=== PATIENT | female | born 1990 | race Caucasian/White ===

== ENCOUNTER → 2021-12-23 14:35 | Outpatient (BNVA) | payer OTHER, SELFPAY | PROVIDERS: Family Provider Physician Assistant Medical; PCP Nurse Practitioner Family; Visit Provider Obstetrics & Gynecology | DX: Z01.419 Encounter for gynecological examination (general) (routine) without abnormal findings (principal) | CPT/HCPCS: 87624 ==

== ENCOUNTER → 2022-06-02 09:47 | Outpatient (BNVA) | payer OTHER, SELFPAY | PROVIDERS: Family Provider Physician Assistant Medical; PCP Nurse Practitioner Family; Visit Provider Obstetrics & Gynecology | DX: Z32.00 Encounter for pregnancy test, result unknown (principal) | CPT/HCPCS: 81000; 81025 ==

== ENCOUNTER 2022-07-15 10:09 | Outpatient (CLI) | payer OTHER, SELFPAY ==
--- NOTE | 2022-07-15 10:00 | US_ITS ---
WS: [id number] EARLY OBSTETRICAL ULTRASOUND (<14 WEEKS). HISTORY: Dating US COMPARISON: None available. Single intrauterine gestational sac is identified. Cardiac activity at 176 BPM. [place]-rump length emily sures 4.1 cm which corresponds to a gestation of 11w0d. Normal-appearing yolk sac and amnion demonstr ated. No subchorionic hemorrhage. No free fluid. RIGHT ovary is not visualized. Normal LEFT ovary. US/US OB <= 14 weeks fetus [id number] IMPRESSION: 1. Single intrauterine gestation of 11 weeks 0 days with an EDC of 02/03/2023. 2. Normal cardiac activity.
== END 2022-07-15 10:10 | disposition home or self-care (01) ==
LOC: RAD 10:09
PROVIDERS: Family Provider Physician Assistant Medical; PCP Nurse Practitioner Family; Visit Provider Family Medicine
DX: Z34.80 Encounter for supervision of other normal pregnancy, unspecified trimester (principal)
CPT/HCPCS: 76801; 80048; 80307; 81000; 81025; 84144; 84443; 84702; 85025; 86592; 86762; 86803; 86850; 86900; 87086; 87340; 87491; 87591; 87624; 87806

== ENCOUNTER → 2022-08-18 16:24 | Outpatient (BNVA) | payer OTHER, SELFPAY | PROVIDERS: Family Provider Physician Assistant Medical; PCP Nurse Practitioner Family; Visit Provider Family Medicine | DX: I10 Essential (primary) hypertension (principal); R80.9 Proteinuria, unspecified; Z34.80 Encounter for supervision of other normal pregnancy, unspecified trimester | CPT/HCPCS: 81511; 82570; 84156 ==

== ENCOUNTER 2022-09-17 07:19 | Outpatient (CLI) | payer OTHER, SELFPAY ==
--- NOTE | 2022-09-17 07:15 | US_ITS ---
WS: [id number] OBSTETRICAL ULTRASOUND COMPLETE HISTORY: Anatomy US - about 9 weeks from now COMPARISON: 07/15/2022 Single intrauterine gestation in Cephalic presentation. Cervix is Closed and normal length. Cervical length is 4.7 cm. Normal amount of amniotic fluid surrounds the fetus. Placenta: Posterior, no previa or abruption. Placenta grade 0 Heart: 150 BPM. Four chambers are identified. RIGHT and LEFT outflow tracts are unremarkable. Anatomy: Limited evaluation of intracranial structures, in particular the cerebellum due to the head position. The remaining brain is negative. Negative spine. kidneys, stomach and urinary b ladder are unremarkable. Abdominal wall, three-vessel cord and cord insertion site are normal. 4 extremities are present. profile: Unremarkable. Gender: Male. measurements: BPD = 4.7 cm = 20w2d; HC = 18.0 cm = 20w3d; AC = 15.5 cm = 20w4d; FL = 3.3 cm = 20w3d; EFW: 360 g. Not available. Biometry is internally concordant. AGA by ultrasound: 20w3d KEITH by ultrasound: 02/01/2023 US/US OB >= 14 weeks fetus [id number] IMPRESSION: 1. Single intrauterine gestation of 20w3d with an KEITH of 02/01/2023. Appropria te growth since the first trimester ultrasound. 2. Limited visualization of the posterior fossa due to position of the h ead. Otherwise brain is negative. 3. The remaining anatomy is negative also.
== END 2022-09-17 07:20 | disposition home or self-care (01) ==
PROVIDERS: PCP Nurse Practitioner Family; Visit Provider Family Medicine
DX: Z34.82 Encounter for supervision of other normal pregnancy, second trimester (principal); Z3A.20 20 weeks gestation of pregnancy
CPT/HCPCS: 76805; 82570; 84156

== ENCOUNTER 2022-10-21 11:18 | Outpatient (CLI) | payer OTHER, SELFPAY ==
--- NOTE | 2022-10-21 11:15 | USCV_ITS ---
MarySoraya martins Age: 32 Gender: F : 1990 Exam Date: 10/21/2022 11:43 Ordering Phys: Carlos Mccurdy MD Technologist: [place] [facility] [place]ication: pain, lft le/hip PROCEDURES: Venous duplex imaging was performed in only the left lower extremity. In addition, the posterior tibial and peroneal trunk were evaluated. On the left side, the common femoral, superficial femoral, profunda femoral, popliteal, posterior tibial, greater saphenous veins, and the peroneal trunk were identified and interrogated in the standard fashion. FINDINGS: Normal 2-D Doppler and augmentation and compressibility throughout the lower extremity venous structures. Additional imaging through the proximal calf veins also reveals no thrombus. Limited evaluation of the greater saphenous vein is patent with no thrombus. Normal left inguinal lymph nodes. CONCLUSIONS No DVT left lower extremity. Normal left inguinal lymph nodes. Dr. Nuris Antony DO (Electronically Signed) Final Date: 21 October 2022 13:36 S
== END 2022-10-21 11:19 | disposition home or self-care (01) ==
PROVIDERS: PCP Nurse Practitioner Family; Visit Provider Family Medicine
DX: M79.89 Other specified soft tissue disorders (principal); M79.605 Pain in left leg; R80.9 Proteinuria, unspecified
CPT/HCPCS: 82570; 82950; 84156; 93971

== ENCOUNTER → 2022-11-18 12:37 | Outpatient (BNVA) | payer OTHER, SELFPAY | PROVIDERS: PCP Nurse Practitioner Family; Visit Provider Family Medicine | DX: R80.9 Proteinuria, unspecified (principal); Z34.80 Encounter for supervision of other normal pregnancy, unspecified trimester; Z3A.00 Weeks of gestation of pregnancy not specified | CPT/HCPCS: 82570; 84156 ==

== ENCOUNTER → 2022-12-02 15:40 | Outpatient (BNVA) | payer OTHER, SELFPAY | PROVIDERS: PCP Nurse Practitioner Family; Visit Provider Family Medicine | DX: Z34.80 Encounter for supervision of other normal pregnancy, unspecified trimester (principal); R80.9 Proteinuria, unspecified; I10 Essential (primary) hypertension | CPT/HCPCS: 82570; 84156 ==

== ENCOUNTER 2022-12-07 09:00 | Oncology outpatient (recurring) (ONCR) | payer OTHER, SELFPAY ==
[2022-12-07 09:46] VITALS: BP 123/74; PULSE 95; RESP 16; TEMP 37.2; O2SAT 98
[2022-12-07 11:34] VITALS: TEMP 36.8; O2SAT 98
[2022-12-07 11:46] VITALS: BP 122/75; PULSE 98; TEMP 36.8; O2SAT 98
== END 2022-12-19 23:59 | disposition home or self-care (01) ==
LOC: ONCMED 09:02
PROVIDERS: PCP Nurse Practitioner Family; Visit Provider Family Medicine
DX: O36.0190 Maternal care for anti-D [Rh] antibodies, unspecified trimester, not applicable or unspecified (principal)
CPT/HCPCS: 86850; 86900; 90384

== ENCOUNTER → 2022-12-14 10:02 | Outpatient (BNVA) | payer OTHER, SELFPAY | PROVIDERS: PCP Nurse Practitioner Family; Visit Provider Nurse Practitioner | DX: O12.10 Gestational proteinuria, unspecified trimester (principal) | CPT/HCPCS: 82575; 84105; 84156; 84300; 84540 ==

== ENCOUNTER 2022-12-28 08:30 | Day surgery (SDC) | payer OTHER, SELFPAY | END 2022-12-28 23:00 | disposition home or self-care (01) | LOC: OR 01-28 10:34 | PROVIDERS: PCP Nurse Practitioner Family; Visit Provider Family Medicine | DX: O12.10 Gestational proteinuria, unspecified trimester (principal); O16.9 Unspecified maternal hypertension, unspecified trimester | CPT/HCPCS: 82570; 84156 ==

== ENCOUNTER 2023-01-05 13:53 | Outpatient (CLI) | payer OTHER, SELFPAY ==
[2023-01-05] VITALS (7 sets, daily range): BP systolic 114–137; BP diastolic 59–83; PULSE 75–83; RESP 18; BMI 30.4
== END 2023-01-05 15:43 | disposition home or self-care (01) ==
LOC: OPOB 14:01 → OBGYN 15:34
PROVIDERS: PCP Nurse Practitioner Family; Visit Provider Family Medicine
DX: O26.899 Other specified pregnancy related conditions, unspecified trimester (principal); Z3A.00 Weeks of gestation of pregnancy not specified; Z67.91 Unspecified blood type, Rh negative
CPT/HCPCS: 59025; 99211

== ENCOUNTER 2023-01-06 09:31 | Outpatient (CLI) | payer OTHER, SELFPAY ==
--- NOTE | 2023-01-06 09:15 | US_ITS ---
WS: [id number] BIOPHYSICAL PROFILE AND LIMITED OB. HISTORY: Maternal proteinuria COMPARISON: 09/17/2022 and 07/15/2022 Presentation: Vertex. Cervix: 3.5 cm and closed. Placenta: Posterior, no previa or abruption. Grade: 1 HEART: FHR of 153BPM. measurements: BPD = 8.9 cm = 35w6d; 57% HC = 31.7 cm = 35w4d; 13% AC = 31.3 cm = 35w2d; 37% FL = 6.9 cm = 35w4d; 32% JESSICA: 14.1 cm EFW: 2673g; 52% AGA by ultrasound: 35w4d KEITH by ultrasound: 02/06/2023 Measurements are internally concordant. Appropriate growth since the first trimester ultrasound. Biophysical profile: Parameters are as follows: Breathin Movement: 2 Tone: 2 Fluid volume: 2 IMPRESSION: 1. Biophysical profile score: 8/8. 2. Single intrauterine gestation of 35w4d with an EDC of 02/06/2023. Appropriate growth since the fir st trimester ultrasound. 3. No growth asymmetry.
== END 2023-01-06 09:32 | disposition home or self-care (01) ==
LOC: RAD 09:31
PROVIDERS: PCP Nurse Practitioner Family; Visit Provider Family Medicine
DX: O12.13 Gestational proteinuria, third trimester (principal); Z3A.35 35 weeks gestation of pregnancy
CPT/HCPCS: 76816; 76819; 82570; 84156; 87081

== ENCOUNTER → 2023-01-12 10:23 | Outpatient (BNVA) | payer OTHER, SELFPAY | PROVIDERS: PCP Nurse Practitioner Family; Visit Provider Family Medicine | DX: O26.899 Other specified pregnancy related conditions, unspecified trimester; Z67.91 Unspecified blood type, Rh negative | CPT/HCPCS: 82570; 84156 ==

== ENCOUNTER → 2023-01-18 12:13 | Outpatient (BNVA) | payer OTHER, SELFPAY | PROVIDERS: PCP Nurse Practitioner Family; Visit Provider Family Medicine | DX: M79.89 Other specified soft tissue disorders (principal); R80.9 Proteinuria, unspecified; I10 Essential (primary) hypertension | CPT/HCPCS: 82570; 84156 ==

== ENCOUNTER 2023-01-20 06:19 | Inpatient (IN) | payer OTHER, SELFPAY ==
[2023-01-20] VITALS (61 sets, daily range): BP systolic 123–165; BP diastolic 65–102; PULSE 60–109; RESP 15–16; TEMP 36.4–36.8; O2SAT 98–100; BMI 33.8
[2023-01-20 06:58] LABS: Basophils % 0.3 %; Eosinophils # 0.1 10^3/uL (0.0-0.8); Eosinophils % 0.8 %; Hematocrit 37.1 % (36-47); Lymphocytes # 1.6 10^3/uL (0.8-4.8); Lymphocytes % 15.2 %; Mean Corpuscular HGB Conc 35.3 g/dL (30-55); Mean Corpuscular Hemoglobin 31.8 pg (27-33); Mean Platelet Volume 11.1 fL (7.4-10.4); Monocytes # 0.8 10^3/uL (0.2-0.9); Monocytes % 7.1 %; Neutrophils # 8.08 10^3/uL (1.8-7.7); Neutrophils % 75.6 %; Nucleated Red Blood Cells % 0 %; Platelet Count 204 10^3/cmm (157-399); Red Blood Count 4.12 10^6/uL (3.85-5.65); Red Cell Distribution Width 12.3 % (12.1-15.1)
[2023-01-20] MEDS: dextrose 5%-lactated ringers 1,000 ML 125 ML IV (07:46)
[2023-01-20] MEDS: oxytocin 30 UNIT/500 ML BAG IV (07:48)
[2023-01-20 08:11] LABS: Add Urine Microscopic? YES; Bilirubin Urine Neg (Negative); Blood Urine 2+ (Negative); Glucose Urine UA Norm (Normal); Ketones Urine Negative (Negative); Leukocyte Esterase Urine Negative (Negative); Nitrate Urine Negative (Negative); Protein Urine 2+ (Negative); RBC Urine 0-4 /hpf (0-2); Transitional Epi Cells Urine 0-4 /hpf; Urine Appearance Clear (CLEAR); Urine Color Yellow (Yellow); Urobilinogen Urine Norm (Negative); WBC Urine 0-4 /hpf (0-5); pH Urine 5 (5-7)
[2023-01-20 08:12] LABS: Add Urine Culture? No; Bacteria Urine TRACE /hpf
[2023-01-20 08:19] LABS: Urine Creatinine 86 mg/dL (28-217)
[2023-01-20 08:22] LABS: Urine Protein Random 120 mg/dL
[2023-01-20 08:28] LABS: Alanine Aminotransferase 10 U/L (0-33); Albumin Level 3.4 g/dL (3.5-5.2); Alkaline Phosphatase 133 U/L (35-105); Anion Gap 15.5 (5-19); Aspartate Amino Transferase 16 U/L (0-32); Blood Urea Nitrogen 12 mg/dL (6-20); Calcium 9.1 mg/dL (8.5-10.5); Carbon Dioxide 20 mmol/L (22-29); Chloride 104 mmol/L (98-107); Globulin 2.6 g/dL (1.3-4.6); Glomerular Filtration Rate 186.2 mL/min (90-130); Glucose 101 mg/dL (65-115); Osmolality Calculated 282 mOsm/kg (285-295); Potassium 3.5 mmol/L (3.5-5.1); Sodium 136 mmol/L (136-145); Total Bilirubin 0.2 mg/dL (0.15-1.2); Uric Acid 4.1 mg/dL (2.4-5.7)
--- NOTE | 2023-01-20 08:33 | P.HP_ITS ---
Providers/Chief Complaint Admitting Physician: Carlos Mccurdy MD Primary Care Provider: Alicja Mcknight NP Chief Complaint: induction History of Present Illness Soraya Hernandez is a 32 year old @ 38.0 weeks by 11 wk US inconsistent with LMP. Preg c/b cHTN, h/o PPROM at 35 weeks, h/o decreased kidney function (proteinuria), umbilical hernia, cystic fibrosis carrier, Rh negative The patient presents to labor and delivery secondary to a scheduled induction of labor because of increasing blood pressures and worsening proteinuria. Her blood pressures at home are getting into the 140s over 90s more consistently and she is getting intermittent headaches and nausea. The patient's urine protein creatinine ratio has been steadily increasing as well and the most recent level was 1.4 from a baseline of 0.67. Because of the patient's increase in blood pressures and worsening proteinuria, it was felt best to proceed with induction of labor at 38 weeks gestation to help mitigate risk of complications. The patient feels well today. She denies any headache today. She had some nausea overnight. She denies any chest pains, shortness of breath, diarrhea, constipation, fever, leakage of fluid, vaginal bleeding. 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 Knee pain Obesity [place]-Schlatter's disease of both lower extremities Proteinuria Surgical History No pertinent past surgical history Family History Sister Cystic fibrosis carrier Family/Other Ovarian cancer Maternal Great Aunt, age onset unknown Grandfather Diabetes paternal and maternal Clotting disorder paternal Mother Anesthesia complication Grandmother Anesthesia complication maternal Denies family history of Colon cancer Heart disease Hyperlipidemia Breast cancer Hypertension Uterine cancer Thyroid disease Stroke Social History Smoking and tobacco/nicotine status: never used tobacco/nicotine Alcohol intake: never Substance/Drug Use: never Female Reproductive History: : 3 Vitals/I&O/Wt Last Vital Signs Pulse 84 01/20/23 07:09 Resp 16 01/20/23 06:19 BP 136/87 01/20/23 07:09 O2 Del Method Room Air 01/20/23 06:21 01/19/23 01/20/23 01/20/23 22:59 06:59 14:59 Intake Total 81.867 / 81.867 Balance 81.867 / 81.867 Weight last 48 hrs Weight 185 lb Physical Exam Narrative: General: Alert and oriented x3 Eyes: Pupils equal round and reactive to light and accommodation Mouth: Mucous membranes moist, pharynx non-erythematous Cardiac: Regular rate and rhythm without murmurs Lungs: Clear to auscultation bilaterally without wheezes, crackles or rhonchi Abdomen: Soft, non-tender, fundus consistent with gestational age Extremities: +1 pitting edema in the bilateral lower extremities Data 01/20/23 06:44 01/20/23 07:30 A&P Assessment and plan (1) Supervision of normal intrauterine in multigravida: The patient is doing well overall at this time. heart tones are in the mid 140s with moderate ability to accelerations with category 1 tracing. The pa tient is having contractions every 10 to 15 minutes. She was 3 cm dilated upon admission. The patient will be started on IV Pitocin for induction of labor. She may have a labor and epidural when she is starting to contract regularly and make change. Her initial blood pressure was 136/87. We will watch for signs of increasing blood pressures and treat with the antihypertensive protocol if need ed. The patient does have underlying renal dysfunction with proteinuria. Although her urine protein creatinine ratio is elevated at baseline, it is increasing gradually and we will watch for signs of complications related to this. Currently I do not feel that the patient has preeclampsia. We will proceed with induction due to increasing risk of complications related to blood pressure as it has been increased at home. All questions were answered. The patient and her are in agreement with current plan of care. (2) Hypertension: (3) Proteinuria: (4) Rh negative state in antepartum period: Attestations Medical Necessity Statement*: The patient will be here for greater than 2 midnights due to routine intrapartum and management of labor and delivery. Coding Level of Care Code Acute Code for Chg Fwd Diagnoses Supervision of normal intrauterine in multigravida Z34.80 Hypertension I10 Proteinuria R80.9 Rh negative state in antepartum period O26.899; Z67.91
[2023-01-20] MEDS: lactated ringers 1,000 ML 999 ML IV (11:38)
[2023-01-20] MEDS: labetalol 5 mg/mL SDV 20mL 20 MG IVP (12:26)
[2023-01-20] MEDS: ROPivacaine syringe 100 MG/50 ML SYRINGE 10 MG EPIDURAL (12:47)
--- NOTE | 2023-01-20 12:57 | P.ANESASSM_ITS ---
Pre-Anesthetic Assessment Height/Weight: Height 1.57 m Weight 83.915 kg Temp Pulse Resp BP Pulse Ox O2 Del Method 97.7 F 78 16 140/98 99 Room Air 01/20/23 10:55 01/20/23 12:54 01/20/23 06:19 01/20/23 12:54 01/20/23 12:44 01/20/23 06:21 Epidural Familial anesthetic complications: None Was Beta Derek taken within 24 hours: N/A Was Clonidine taken within 24 hours: N/A Last intake: > Social No alcohol and No tobacco Exam alert, oriented x 3, clear to auscultation bilaterally and regular rate & rhythm CV/HEM Hypertension Anesthetic Plan ASA status: 2 Anesthesia: Regional (specify below) (epidural) Risk of > 500 ml blood loss (7ml/kg in children): Yes, adequate IV access and fluids planned Medications/Allergies Home Medications Medication Instructions Recorded Confirmed Last Taken Type prenat.vits,cammie,jel-uxyz-ijkav 1 tab PO DAILY 06/16/22 01/20/23 01/19/23 History Allergies Allergy/AdvReac Type Severity Reaction Status Date / Time No Known Allergies Allergy Verified 12/14/22 09:46 Current Medications Generic Name Dose Route Start Last Admin Trade Name Freq PRN Reason Stop Dose Admin Dextrose/Lactated Ringer's 1,000 mls @ 125 mls/hr 01/20/23 06:30 01/20/23 11:38 Dextrose 5%-Lactated Ringers IV 0 mls/hr .Q8H ROSELIA Infusion Oxytocin 30 unit in 500 mls @ 1 mls/hr 01/20/23 07:30 01/20/23 12:15 Pitocin IV 9 milliunit/min .Q24H ROSELIA 9 mls/hr Titration Protocol 1 MILLIUNIT/MIN Lactated Ringer's 1,000 mls @ 999 mls/hr 01/20/23 11:27 01/20/23 11:38 Lactated Ringers IV 999 mls/hr .Q1H1M PRN Administration See label comments Labetalol HCl 20 mg 01/20/23 12:14 01/20/23 12:26 Labetalol 5 Mg/Ml Sdv 20ml IVP 20 mg PRN PRN Administration HYPERTENSION Protocol [facility] Anesthesia Medical History Acute bacterial sinusitis 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 Knee pain Obesity [place]-Schlatter's disease of both lower extremities Proteinuria Surgical History No pertinent past surgical history Family History Sister Cystic fibrosis carrier Family/Other Ovarian cancer Maternal Great Aunt, age onset unknown Grandfather Diabetes paternal and maternal Clotting disorder paternal Mother Anesthesia complication Grandmother Anesthesia complication maternal Denies family history of Colon cancer Heart disease Hyperlipidemia Breast cancer Hypertension Uterine cancer Thyroid disease Stroke Social History Smoking and tobacco/nicotine status: never used tobacco/nicotine Alcohol intake: never Substance/Drug Use: never Female Reproductive History : 3 Data Anesthesia 01/20/23 06:44 01/20/23 07:30 Short CBC 01/20/23 Range/Units 06:44 WBC 10.70 (3.29-11.43) 10^3/uL Hgb 13.10 (11.27-16.99) g/dL Hct 37.1 (36-47) % MCV 90.0 (85-98) fl Plt Count 204 (157-399) 10^3/cmm Neut % (Auto) 75.6 % Neut # (Auto) 8.08 H (1.8-7.7) 10^3/uL BMP 01/20/23 07:30 Sodium 136 Potassium 3.5 Chloride 104 Carbon Dioxide 20 L BUN 12 Creatinine 0.4 L Glucose 101 Calcium 9.1 Liver Function 01/20/23 Range/Units 07:30 Total Bilirubin 0.2 (0.15-1.2) mg/dL AST 16 (0-32) U/L ALT 10 (0-33) U/L Alkaline Phosphatase 133 H (35-105) U/L Albumin 3.4 L (3.5-5.2) g/dL Urine 01/20/23 Range/Units 07:00 Urine Color Yellow (Yellow) Urine Appearance Clear (CLEAR) Urine pH 5 (5-7) Ur Specific [place] 1.020 (1.005-1.030) Urine Protein 2+ H (Negative) Urine Glucose (UA) Norm (Normal) Urine Ketones Negative (Negative) Urine Nitrate Negative (Negative) Urine Bilirubin Neg (Negative) Ur Leukocyte Esterase Negative (Negative) Urine RBC 0-4 H (0-2) /hpf Urine WBC 0-4 H (0-5) /hpf Blood Bank 01/20/23 06:44 Blood Type AB Negative Rho(D) Type Negative Antibody Screen Positive Cardiac Studies: No Data to Display
--- NOTE | 2023-01-20 12:58 | ANES.PROC ---
Anesthesia Procedures Procedure/Date: 01/20/23 Epidural: Time Out Performed: Yes Consents Signed: Procedure Consent Consent: requested by attending/covering physician, from patient, from other, risks and benefits reviewed and patient agrees to proceed Lumbar Level: L3-L4 Epidural position: sitting Epidural procedure: sterile prep of area, 1% lidocaine to numb the area, 18 g needle, negative for paresthesia passed, neg for paresthesia, test dose given, 1.5% xylocaine 1:200k epi (5), 0.2% Ropivacaine bolus ml (5), placed PCEA, no systemic response, sterile dressing applied, L.U.D. no apparent complications and 0.2% Ropiavacaine @ mls/hr (10) Additional Comments: KRISTEN at 6.5 cm, threaded to 12 cm, patient reported significant decrease in pain of contractions after bolus
--- NOTE | 2023-01-20 14:40 | PM.MISC ---
Miscellaneous Note Purpose of Documentation: Pain Note: Called back to Patient's bedside due to return of pain of contractions. Patient states she is feeling the contractions on her R and L sides now, but there is still some numbness of her R hip and her R foot feels less heavy. Upon inspection of the epidural insertion site it was discovered that epidural solution is leaking back out of the track the catheter and tuohy created and her dressings are becoming saturated. Offered to replace epidural since current one isn't working well with apparent leak, tip may potentially no longer be in the epidural space. Patient declined to have it replaced. I suggested turning off the pump, d/t possibility of epidural soln just being deposited needlessly in subcutaneous tissues, but it was felt by nursing staff and patient that the pump may be providing some element of pain control since she is reacting less adversely to each contraction than prior to epidural placement. All questions answered and anesthesia will remain available for any further assistance.
[2023-01-20] MEDS: lidocaine 2% INJ 20 mL INJECTION (15:43)
--- NOTE | 2023-01-20 16:00 | PM.DELIVERY ---
Delivery Note: Date of delivery: January 20, 2023 Pre-delivery diagnoses: 1. Intrauterine at 38.0 weeks gestation 2. Chronic hypertension 3. Proteinuria 4. Umbilical hernia 5. Cystic fibrosis carrier 6. Rh- Post-delivery diagnoses: 1. Intrauterine status post spontaneous vaginal delivery at 38.0 weeks gestation 2. Chronic hypertension 3. Proteinuria 4. Umbilical hernia 5. Cystic fibrosis carrier 6. Rh- 7. Delivery of healthy infant male weighing 6 pounds 15 ounces with Apgars of 9 and 10. Procedure: Spontaneous vaginal delivery Delivering Physician: Carlos Mccurdy MD Estimated blood loss (mL): 150 Findings: 1. Healthy infant male weighing 6 pounds 15 ounces with Apgars of 9 and 10 2. Intact placenta with central umbilical cord insertion site Pre-Delivery Course: Soraya Hernandez is a 32 year old G3 now [id number] status post continuous vaginal delivery @ 38.0 weeks by 11 wk US inconsistent with LMP. Preg was c/b cHTN, h/o PPROM at 35 weeks, h/o decreased kidney function (proteinuria), umbilical hernia, cystic fibrosis carrier, Rh negative. The patient presented to labor and delivery for induction of labor secondary to worsening hypertension and proteinuria. The patient was 3 cm dilated upon presentation. The patient was started on IV Pitocin and her contractions gradually increased. The patient had spontaneous rupture membranes at 12:09 PM on 01/20/2023. The patient made steady change and received a laboring epidural. Epidural initially helped well on 1 side but not the other. Eventually the epidural stopped working well and was found to be leaking. At that point, the patient was 8 cm dilated. We offered to have the epidural replaced versus breaking the forebag of water and moving forward. The patient requested to forego a new epidural and proceed with delivery. The patient gradually made change after the forebag was ruptured and was complete by 1503 on 01/20/2023. Delivery: The patient began pushing at 1507 on 01/20/2023. The patient pushed well and the delivered in the OA position at 1527 on 01/20/2023. The left shoulder was anterior shoulder and it delivered with downward pressure. The right hand was noted to be delivering along with the head. The rest of the infant delivered without complication. The 's mouth and nose were bulb suction by myself and the infant was crying immediately after delivery. The infant was placed on the patient's chest while the nurses were waiting to care for him. The cord was clamped by myself and cut by the infant's father after approximately one minute. The cord blood was obtained and then the cord was drained of blood. Traction was placed on the cord and the placenta delivered without complication at 1532 on 01/20/2023. The placenta was noted to be intact with a central umbilical cord insertion site. The cervix was inspected and no lacerations were noted. The vaginal wall was inspected and there was a small 2nd degree laceration of the perineum that did not extend to the rectum. 2% Lidocaine was placed for anesthesia and 3-0 vicryl was used to repair the laceration in a running fashion. The patient tolerated this well. A rectal exam was done and no sutures were noted in the rectal vault. Currently both the patient and are doing well. History History History 3 Term 1 1 Miscarriages/Ectopic 1 Living Children 2 Past Pregnancies Del. Date GA/Weeks Outcome Route Wt Inf Gender Labor Lgth Comp. Anesthesia Location 12/29/17 35 live - Vaginal 5 lb 7 oz Male 10 hours regional [facility] [place] - [facility] 01/20/23 38 live - full term Vaginal 6 lb 15 oz Male 8 hr regional [facility] [place] Delivery Date: 12/29/17 Last Updated by: Carlos Mccurdy MD PPROM at 35 weeks, [facility], no gHTN, NICU for 10 days - [place] Delivery Date: 01/20/23 Last Updated by: Carlos Mccurdy MD cHTN, worsening proteinuria, epidural did not work and leaked fluid out the back. A&P Assessment and plan (1) Spontaneous vaginal delivery: (2) Rh negative state in antepartum period: (3) Proteinuria: (4) Hypertension: Coding Level of Care Code Acute Code for Chg Fwd Diagnoses Spontaneous vaginal delivery O80 Rh negative state in antepartum period O26.899; Z67.91 Proteinuria R80.9 Hypertension I10
[2023-01-20] MEDS: HYDROcodone-acetaminophen 5-325 mg Tablet PO (17:26)
[2023-01-20] MEDS: docusate sodium 100 mg Capsule PO (18:42)
[2023-01-20] MEDS: ibuprofen 800 mg tablet PO (23:09)
[2023-01-21] MEDS: HYDROcodone-acetaminophen 5-325 mg Tablet PO (01:27)
[2023-01-21 01:39] VITALS: BP 147/76; PULSE 84; RESP 16; TEMP 36.9; O2SAT 98
[2023-01-21 03:59] LABS: Hematocrit 31.7 % (36-47); Mean Corpuscular HGB Conc 35.3 g/dL (30-55); Mean Corpuscular Hemoglobin 31.6 pg (27-33); Mean Corpuscular Volume 89.5 fl (85-98); Mean Platelet Volume 11.2 fL (7.4-10.4); Platelet Count 194 10^3/cmm (157-399); Red Blood Count 3.54 10^6/uL (3.85-5.65); Red Cell Distribution Width 12.2 % (12.1-15.1); White Blood Count 14.38 10^3/uL (3.29-11.43)
[2023-01-21 05:35] VITALS: BP 144/72; PULSE 90; RESP 15; TEMP 36.8; O2SAT 99
--- NOTE | 2023-01-21 08:00 | ANE.PACU2 ---
Inpatient post-anesthesia follow up: Airway intact: Yes Vital signs: Temperature 98.4 F Pulse Rate 75 Respiratory Rate 18 Blood Pressure 150/88 Pulse Oximetry 98 Oxygen Delivery Me thod Room Air Oxygen Flow Rate Fraction of Inspir ed Oxygen Hydration adequate: Yes Nausea and vomiting: No Pain level: 1 Mental status: Baseline
[2023-01-21] MEDS: docusate sodium 100 mg Capsule PO (09:22)
[2023-01-21] MEDS: prenatal vitamin Capsule 1 CAP PO (09:22)
[2023-01-21] MEDS: ibuprofen 800 mg tablet PO ×2 (09:22→15:55)
[2023-01-21 09:33] VITALS: BP 132/109; PULSE 83; RESP 16; TEMP 36.6; TEMP 36.7; O2SAT 99
[2023-01-21 15:55] VITALS: BP 130/83; PULSE 79; RESP 16; TEMP 37.2; O2SAT 98
--- NOTE | 2023-01-21 17:11 | P.DS_ITS ---
Discharge Providers Date of Admission: 01/20/23 06:19 Date of Discharge: January 21, 2023 Attending Provider at Admission: Carlos Mccurdy MD Attending Provider at Discharge: Carlos Mccurdy MD Primary Care Provider: Alicja Mcknight NP Diagnoses at Discharge Discharge Diagnosis (1) Spontaneous vaginal delivery: Status: Acute (2) Rh negative state in antepartum period: Status: Acute (3) Proteinuria: Status: Acute (4) Hypertension: Status: Acute Other Information Additional DC diagnoses/information: 1.? Intrauterine status post spontaneous vaginal delivery at 38.0 weeks gestation 2.? Chronic hypertension 3.? Proteinuria 4.? Umbilical hernia 5.? Cystic fibrosis carrier 6.? Rh- 7.? Delivery of healthy male weighing 6 pounds 15 ounces with Apgars of 9 and 10 Reason for Visit Reason for Visit: induction Brief History: Soraya Hernandez is a 32 year old G3 now P1112 status post continuous vaginal delivery @ 38.0 weeks by 11 wk US inconsistent with LMP. Preg was c/b cHTN, h/o PPROM at 35 weeks, h/o decreased kidney function (proteinuria), umbilical h ernia, cystic fibrosis carrier, Rh negative. The patient presented to labor and delivery for induction of labor secondary to worsening hypertension and proteinuria.? Hospital Course Hospital Course The patient was 3 cm dilated upon presentation.? The patient was started on IV Pitocin and her contractions gradually increased.? The patient had spontaneous rupture membranes at 12:09 PM on 01/20/2023.? The patient made steady change and received a laboring epidural.? Epidural initially helped well on 1 side but not the other.? Eventually the epidural stopped working well and was found to be leaking.? At that point, the patient was 8 cm dilated.? We offered to have the epidural replaced versus breaking the forebag of water and moving forward.? The patient requested to forego a new epidural and proceed with delivery.? The patient gradually made change after the forebag was ruptured and was complete by 1503 on 01/20/2023. The patient began pushing at 1507 on 01/20/2023.? The patient pushed well and the delivered in the OA position at 1527 on 01/20/2023.? The left shoulder was anterior shoulder and it delivered with downward pressure.? The right hand was noted to be delivering along with the head.? The rest of the infant delivered without complication.? The infant's mouth and nose were bulb suction by myself and the infant was crying immediately after delivery.? The was placed on the patient's chest while the nurses were waiting to care for him. The cord was clamped by myself and cut by the infant's father after approximately one minute. The cord blood was obtained and then the cord was drained of blood. Traction was placed on the cord and the placenta delivered without complication at 1532 on 01/20/2023. The placenta was noted to be intact with a central umbilical cord insertion site. The cervix was inspected and no lacerations were noted. The vaginal wall was inspected and there was a small 2nd degree laceration of the perineum that did not extend to the rectum. 2% Lidocaine was placed for anesthesia and 3-0 vicryl was used to repair the laceration in a running fashion. The patient tolerated this well. the patient has done well. Her bleeding is decreased well. She is ambulating, voiding, passing gas and tolerating food by mouth. Her blood pressures have been in the 130s to 140s in general. She is not having any symptoms of severe pressures. The patient is to watch her blood pressures at home and we will recheck her urine protein creatinine ratio at 6 weeks. The patient has labetalol at home to take if needed. Routine discharge instructions were discussed. All questions were answered. Physical Exam Narrative: General: Alert and oriented x3 Cardiac: Regular rate and rhythm without murmurs Lungs: Clear to auscultation bilaterally without wheezes, crackles or rhonchi Abdomen: Soft, mild tenderness over uterus. The uterus is firm and 2 cm below the umbilicus. Extremities: +1 pitting edema in the bilateral lower extremities Urinary Catheter Management: Vazquez: Cath Placed During This Visit: yes, but has since been removed by the nurse Reason for Continuing Indwelling Catheter: Decision to DC Catheter Urinary Catheter Date of Insertion: 01/20/23 Urinary Catheter Time of Insertion: 13:40 Date Urinary Catheter Removed: 01/20/23 Time Urinary Catheter Discontinued: 15:00 Discharge Data Studies Completed and Pending Laboratory Results WBC 14.38 10^3/uL (3.29-11.43) H 01/21/23 03:50 RBC 3.54 10^6/uL (3.85-5.65) L 01/21/23 03:50 Hgb 11.20 g/dL (11.27-16.99) L 01/21/23 03:50 Hct 31.7 % (36-47) L 01/21/23 03:50 MCV 89.5 fl (85-98) 01/21/23 03:50 MCH 31.6 pg (27-33) 01/21/23 03:50 MCHC 35.3 g/dL (30-55) 01/21/23 03:50 RDW 12.2 % (12.1-15.1) 01/21/23 03:50 Plt Count 194 10^3/cmm (157-399) 01/21/23 03:50 MPV 11.2 fL (7.4-10.4) H 01/21/23 03:50 Neut % (Auto) 75.6 % 01/20/23 06:44 Lymph % (Auto) 15.2 % 01/20/23 06:44 [place] % (Auto) 7.1 % 01/20/23 06:44 Eos % (Auto) 0.8 % 01/20/23 06:44 Baso % (Auto) 0.3 % 01/20/23 06:44 Neut # (Auto) 8.08 10^3/uL (1.8-7.7) H 01/20/23 06:44 Lymph # (Auto) 1.6 10^3/uL (0.8-4.8) 01/20/23 06:44 [place] # (Auto) 0.8 10^3/uL (0.2-0.9) 01/20/23 06:44 Eos # (Auto) 0.1 10^3/uL (0.0-0.8) 01/20/23 06:44 Baso # (Auto) 0.0 10^3/uL (0.0-0.1) 01/20/23 06:44 Nucleated RBC % (auto) 0 % 01/20/23 06:44 Nucleated RBCs # 0.0 /100WBC 01/20/23 06:44 Sodium 136 mmol/L (136-145) 01/20/23 07:30 Potassium 3.5 mmol/L (3.5-5.1) 01/20/23 07:30 Chloride 104 mmol/L (98-107) 01/20/23 07:30 Carbon Dioxide 20 mmol/L (22-29) L 01/20/23 07:30 Anion Gap 15.5 (5-19) 01/20/23 07:30 BUN 12 mg/dL (6-20) 01/20/23 07:30 Creatinine 0.4 mg/dL (0.5-0.9) L 01/20/23 07:30 GFR Calculation 186.2 mL/min (90-130) H 01/20/23 07:30 Glucose 101 mg/dL (65-115) 01/20/23 07:30 Calculated Osmolality 282 mOsm/kg (285-295) L 01/20/23 07:30 Uric Acid 4.1 mg/dL (2.4-5.7) 01/20/23 07:30 Calcium 9.1 mg/dL (8.5-10.5) 01/20/23 07:30 Total Bilirubin 0.2 mg/dL (0.15-1.2) 01/20/23 07:30 AST 16 U/L (0-32) 01/20/23 07:30 ALT 10 U/L (0-33) 01/20/23 07:30 Alkaline Phosphatase 133 U/L (35-105) H 01/20/23 07:30 Total Protein 6.0 g/dL (6.6-8.7) L 01/20/23 07:30 Albumin 3.4 g/dL (3.5-5.2) L 01/20/23 07:30 Globulin 2.6 g/dL (1.3-4.6) 01/20/23 07:30 Urine Color Yellow (Yellow) 01/20/23 07:00 Urine Appearance Clear (CLEAR) 01/20/23 07:00 Urine pH 5 (5-7) 01/20/23 07:00 Ur Specific [place] 1.020 (1.005-1.030) 01/20/23 07:00 Urine Protein 2+ (Negative) H 01/20/23 07:00 Urine Glucose (UA) Norm (Normal) 01/20/23 07:00 Urine Ketones Negative (Negative) 01/20/23 07:00 Urine Blood 2+ (Negative) H 01/20/23 07:00 Urine Nitrate Negative (Negative) 01/20/23 07:00 Urine Bilirubin Neg (Negative) 01/20/23 07:00 Urine Urobilinogen Norm mg/dL (Negative) 01/20/23 07:00 Ur Leukocyte Esterase Negative (Negative) 01/20/23 07:00 Urine RBC 0-4 /hpf (0-2) H 01/20/23 07:00 Urine WBC 0-4 /hpf (0-5) H 01/20/23 07:00 Ur Squamous Epith Cells 5-10 /hpf (0-5) H 01/20/23 07:00 Ur Transition Epith Cell 0-4 /hpf 01/20/23 07:00 Calcium Oxalate Crystal 10-15 /hpf H 01/20/23 07:00 Amorphous Sediment Not Reportable 01/20/23 07:00 Urine Bacteria Trace /hpf (NONE) 01/20/23 07:00 U Random Total Protein 120 mg/dL 01/20/23 07:00 Urine Creatinine 86 mg/dL (28-217) 01/20/23 07:00 Protein/Creatinin Ratio 1.40 mg/mg CR 01/20/23 07:00 Blood Type AB Negative 01/20/23 06:44 Rho(D) Type Negative 01/20/23 06:44 Antibody Screen Positive 01/20/23 06:44 Antibody Identification Anti-D 01/20/23 06:44 Vitals Last Vital Signs Temp 98.9 F 01/21/23 15:55 Pulse 79 01/21/23 15:55 Resp 16 01/21/23 15:55 BP 130/83 01/21/23 15:55 Pulse Ox 98 01/21/23 15:55 O2 Del Method Room Air 01/21/23 15:55 Discharge Plan Discharge Patient Disposition: Home Condition: Stable Prescriptions: New hydrocodone-acetaminophen 5-325 mg Tablet 1 tab PO Q6H PRN (Reason: Moderate To Severe Pain) Qty: 10 0RF ibuprofen 800 mg Tablet 800 mg PO TID Qty: 30 0RF ferrous sulfate 325 mg (65 mg iron) tablet 325 mg PO DAILY Qty: 14 0RF labetalol 100 mg tablet 100 mg PO BID PRN (Reason: See instructions) Qty: 60 0RF Rx Instructions: Take one tab PO BID if SBP>150 or DBP>100 Continued prenat.vits,cammie,[id number] Tablet 1 tab PO DAILY Discharge Orders: Discharge Order (Routine); Ordered 01/21/23 Ordered By: Carlos Mccurdy Patient Instructions: Depression (DC), Bleeding (DC), Preeclampsia and Eclampsia After Delivery (GEN), Vaginal Delivery (DC), Hemorrhage (DC), OB Discharge Report, OB Food/Drug Interaction Guide, Opioid Safety, OB Home Care, OB Proud Parent Packet Activity Restrictions/Additional Instructions: Nothing per vagina for 6 weeks. I would recommend showers instead of baths for the first 6 weeks. Discharge Attestations Time Spent in Discharge Care*: greater than 30 min Quality Metrics Clinical Quality Measures [ No reported AMI, CVA or VTE this stay] Coding Level of Care Code Acute Code for Chg Fwd Diagnoses Spontaneous vaginal delivery O80 Rh negative state in antepartum period O26.899; Z67.91 Proteinuria R80.9 Hypertension I10
[2023-01-21 18:15] VITALS: BP 150/88; PULSE 75; RESP 18; TEMP 36.9
== END 2023-01-21 18:20 | disposition home or self-care (01) | DRG 806 ==
LOC: OPOB 08:27 → OBGYN 08:27
PROVIDERS: Admitting Provider Family Medicine; PCP Nurse Practitioner Family; Visit Provider Family Medicine
DX: O16.4 Unspecified maternal hypertension, complicating childbirth (principal); O36.0930 Maternal care for other rhesus isoimmunization, third trimester, not applicable or unspecified; Z37.0 Single live birth; O99.834 Other infection carrier state complicating childbirth; O12.14 Gestational proteinuria, complicating childbirth; Z22.8 Carrier of other infectious diseases; O70.1 Second degree perineal laceration during delivery; Z3A.38 38 weeks gestation of pregnancy; K42.9 Umbilical hernia without obstruction or gangrene; Z67.91 Unspecified blood type, Rh negative
CPT/HCPCS: 36415; 51702; 59025; 59409; 80053; 80503; 81001; 82570; 84156; 84550; 85025; 85027; 86850; 86870; 86900; 96374; J2590; J2795; J3490; J7120; J7121

== ENCOUNTER 2023-02-17 14:23 | Outpatient (CLI) | payer OTHER, SELFPAY ==
--- NOTE | 2023-02-17 14:30 | CT_ITS ---
WS: [id number] CT ABDOMEN AND PELVIS NONCONTRAST HISTORY: periumbilical hernia TECHNIQUE: Imaging performed through the abdomen and pelvis. Coronal and sagittal reformats are submi tted. All CT scans at [facility] use at least one of these dose optimization techniques: auto mated exposure control; mA and/or kV adjustment per patient size (includes targeted exams where dose is matched to clinical indication); or iterative reconstruction. DLP: 429.13 mGy.cm COMPARISON: None available. Lower thorax: Lung bases are clear. Visualized heart is normal. No hiatal hernia. Liver: Normal size liver. No mass or bile duct dilatation. Gallbladder: Normal gallbladder. No pericholecystic fluid or cholelithiasis. No gallbladder wall thic kening. Pancreas: Normal size and attenuation. Normal pancreatic duct. No pancreatitis or mass. Spleen: Normal. Adrenal glands: Normal. No mass. Right kidney: Nonobstructing 5 mm calcification mid pelvis. Left kidney: Normal size kidney with no mass or hydronephrosis. Aorta: Normal abdominal aorta, no aneurysm or atherosclerosis. No free fluid, intraperitoneal air or significant lymphadenopathy. GI tract: Normal noncontrast imaging of the stomach, small bowel and colon. No obstruction or wall th ickening. Normal appendix. Abdominal wall: There is a very tiny defect at the level of the umbilicus containing fat. There is al so an area of increased density within the omental fat suggesting omental necrosis. No incarcerated h ernia. Pelvis: Osseous structures: Unremarkable. IMPRESSION: 1. Very small fat-containing umbilical hernia. There is also an area of fat necrosis just deep to th e umbilicus 2. Normal appendix. 3. Nonobstructing 5 mm calcification RIGHT renal pelvis.
== END 2023-02-17 14:24 | disposition home or self-care (01) ==
LOC: RAD 14:25
PROVIDERS: PCP Nurse Practitioner Family; Visit Provider Surgery
DX: K42.9 Umbilical hernia without obstruction or gangrene (principal); M79.89 Other specified soft tissue disorders; N28.89 Other specified disorders of kidney and ureter
CPT/HCPCS: 74176

== ENCOUNTER 2023-06-14 10:59 | Day surgery (SDC) | payer OTHER, SELFPAY ==
[2023-06-14] VITALS (15 sets, daily range): BP systolic 108–134; BP diastolic 61–87; PULSE 72–101; RESP 15–24; TEMP 36.5–37.1; O2SAT 92–100; BMI 27.4
--- NOTE | 2023-06-14 12:03 | P.HPUD_ITS ---
Surgery/Procedure H&P Update DATE OF PROCEDURE: June 14, 2023 DATE H&P PERFORMED: 05/25/23 H&P UPDATE INFORMATION: I have reviewed H&P completed within last 30 days, I have examined patient prior to procedure, No changes to prior documentation and H&P is in [facility] EMR on date indicated PLANNED PROCEDURE: Operation Date: 06/14/23 12:40 Proposed Procedures p 27675 lap possible open ventral hernia repair with mesh K43.9(Not Applicable) - Bobby Carrera MD
--- NOTE | 2023-06-14 12:16 | ANES.PREANE2 ---
Pre-Anesthetic Assessment Height/Weight: Height 1.57 m Temp Pulse Resp BP Pulse Ox O2 Del Method 97.7 F 89 16 126/86 98 Room Air 06/14/23 11:59 06/14/23 11:59 06/14/23 11:59 06/14/23 11:59 06/14/23 11:59 06/14/23 11:59 Operation Date: 06/14/23 12:40 Proposed Procedures p 67947 lap possible open ventral hernia repair with mesh K43.9(Not Applicable) - Bobby Carrera MD Familial anesthetic complications: None Was Beta Derek taken within 24 hours: N/A Was Clonidine taken within 24 hours: N/A Last intake: Intake Last Liquid Date 06/14/23 Last Liquid Time 06:30 Last Solid Date 06/14/23 Last Solid Time 06:30 Social No alcohol and No tobacco Exam alert, oriented x 3, clear to auscultation bilaterally and regular rate & rhythm Airway Mallampati: Class I Dentition: full Anesthetic Plan ASA status: 1 Anesthesia: General Risk of > 500 ml blood loss (7ml/kg in children): No Medications/Allergies Allergies Allergy/AdvReac Type Severity Reaction Status Date / Time No Known Allergies Allergy Verified 06/11/23 09:08 [facility] Anesthesia Medical History Proteinuria Acute bacterial sinusitis 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 Obesity Knee pain [place]-Schlatter's disease of both lower extremities Surgical History No pertinent past surgical history Family History Sister Cystic fibrosis carrier Family/Other Ovarian cancer Maternal Great Aunt, age onset unknown Grandfather Diabetes paternal and maternal Clotting disorder paternal Mother Anesthesia complication Grandmother Anesthesia complication maternal Denies family history of Colon cancer Heart disease Hyperlipidemia Breast cancer Hypertension Uterine cancer Thyroid disease Stroke Social History Smoking and tobacco/nicotine status: never used tobacco/nicotine Alcohol intake: never Substance/Drug Use: never Female Reproductive History Date of last menstrual period: 06/11/23 Data Anesthesia Cardiac Studies: No Data to Display
[2023-06-14] MEDS: sodium chloride 0.9% 1,000 ML 30 ML IV (12:41)
[2023-06-14 12:49] LABS: OR HCG Qualitative Urine Negative (Negative)
[2023-06-14] MEDS: ceFAZolin 2,000 MG in sodium chloride 0.9% (plus) 50 ML 100 MG IV (12:49)
[2023-06-14] MEDS: BUPivacaine 0.25% INJ 30 mL INJECTION (13:21)
[2023-06-14] MEDS: lidocaine-epi 1% 20 mL INJ INJECTION (13:21)
--- NOTE | 2023-06-14 14:08 | PM.OP ---
Operative Report Date of procedure: June 14, 2023 Pre-op diagnosis: Ventral hernia Post-op diagnosis: Same Post-op findings: 2 cm supraumbilical ventral hernia Procedure done: Ventral hernia repair with mesh laparoscopic, laparoscopic guided TAP block Implants: Ventralight mesh 6 inches Surgeon: Bobby Carrera MD Web Page Designer: [facility] OR Staff Estimated blood loss: 10 Complications: none Brief History: 32-year-old female with history of ventral hernia who presented for medically for evaluation for repair. After discussion of all risk and benefits as documented my preop note we decided to proceed. Procedure: Patient was brought into the OR, she was placed in the supine position. General esthesia was given. The abdomen was prepped and draped in the usual sterile fashion. The abdomen was accessed via a 5 mm incision with Optiview technique at the level of Stark's point. Initial pneumoperitoneum showed no evidence of visceral injury during entry. Additional 12 mm trocar was placed in the left flank under direct visualization and a 5 mm trocar was placed in the left lower quadrant under direct visualization. laparoscopy revealed a fat contaning ventral hernia in the lower aspect of the falciform ligament. I then used LigaSure to take down the falciform ligament and with gentle traction I was able to reduce the incarcerated fat from the hernia that was part of the falciform ligament. Once the fat was reduced the hernia was noted to be about 2 cm and no additional contents were noted. I then proceeded to take down the falciform ligament another 5 cm proximal to this area to allow for a good landing zone for the mesh. A 6 inches Ventralight mesh with positioning system was then inserted into the abdomen, the positioning system was retrieved with a Mol[place]-Carlota suture passer via umbilical incision. This placed the mesh in completed position to the anterior abdominal wall, I then proceeded to tack the mesh in position with absorbable tacker's using a standard double crown configuration. I then proceeded to remove the positioning system and this exoskeleton was retrieved and removed from the abdomen via the 12 mm port. At this point I proceeded with tap block, under direct laparoscopic guidance I proceeded to inject 15 cc of 0.25% Marcaine on the transverse abdominal plane of the right upper quadrant and I did the same thing on the transverse abdominal plane of the left upper quadrant. Finally laparoscopy showed no evidence of additional pathology in the abdomen. The 12 mm trocar was removed and this incision was closed with a [place]-Carlota suture passer under direct visualization. This was done with a 0 Vicryl. The left lower quadrant trocar was then removed under direct visualization. The pneumoperitoneum was evacuated and I was able to visualize adequate position of the mesh with the peritoneum desufflated. The left upper quadrant 5 mm trocar was used to evacuate pneumoperitoneum and subsequentlly removed. The wounds were closed in layers using #4-0 Monocryl for the skin. Dermabond was applied. At the end of the procedure all counts were correct, the patient tolerated well the procedure and was transferred to the PACU in stable condition.
[2023-06-14] MEDS: fentaNYL 50 mcg/mL INJ 2mL IVP ×2 (14:28→14:40)
[2023-06-14] MEDS: oxyCODONE 5 mg IR Tab/Cap PO (15:56)
[2023-06-14] MEDS: ondansetron 2 mg/ML SDV 2 mL 4 MG IVP (16:15)
[2023-06-14] MEDS: scopolamine 1.5 Patch 1 PATCH TRANSDERMA (16:15)
--- NOTE | 2023-06-14 16:30 | ANE.PACU2 ---
Inpatient post-anesthesia follow up: Airway intact: Yes Vital signs: Temperature 98.5 F Pulse Rate 85 Respiratory Rate 18 Blood Pressure 112/77 Pulse Oximetry 98 Oxygen Delivery Me thod Room Air Oxygen Flow Rate 8 Fraction of Inspir ed Oxygen Hydration adequate: Yes Nausea and vomiting: No Pain level: 1 Mental status: Baseline
--- NOTE | 2023-06-14 16:32 | SUR.PHASEII ---
16:15 medicated for pain and nausea.
== END 2023-06-14 16:30 | disposition home or self-care (01) ==
PROVIDERS: Anesthesiology; PCP Nurse Practitioner Family; Visit Provider Surgery
PROC: 0WQF4ZZ Repair Abdominal Wall, Percutaneous Endoscopic Approach (ICD-10-PCS; CPT 49591; principal; 2023-06-14 12:30)
DX: K43.9 Ventral hernia without obstruction or gangrene (principal); E66.9 Obesity, unspecified; Z68.27 Body mass index [BMI] 27.0-27.9, adult
CPT/HCPCS: 49591; 81025; 84703; J0131; J0690; J1100; J1170; J1200; J1885; J2250; J2405; J2704; J2710; J3010; J3490; J7030